=== PATIENT | female | born 1985 | race Caucasian/White ===

== ENCOUNTER → 2017-02-08 | Outpatient (CLI) | payer OTHER | LOC: KOH-I 02-05 09:30 | DX: S90.01XA Contusion of right ankle, initial encounter (principal) | CPT/HCPCS: 73723; A9577 ==

== ENCOUNTER → 2021-01-21 | Outpatient (CLI) | payer OTHER ==
[~2021-01-21] MED LIST: ALDACTONE100 MG PO; BREO ELLIPTA 11 EACH INH; BUSPIRONE HCL30 MG PO; COLACE 100MG C100 MG PO; FLONASE ALLER15.8 ML; GLUCOPHAGE500 MG PO; HYDROCHLOROTHIA25 MG PO; HYDROCODON-ACE1 EAC4 PO; IBU600 MG PO; IBUPROFEN600 MG PO; LAMOTRIGINE150 MG PO; LEXAPRO20 MG PO; NASACORT16.9 ML; NORCO 5-325 TA1 EACH PO; PROPRANOLOL HCL20 MG PO; PROTONIX40 MG PO; PROVERA 10 MG T10 MG PO; VENTOLIN HFA 66.7 GM INH; VISTARIL 25 MG25 MG PO; VITAMIN D21250 MCG PO; ZESTRIL5 MG PO
== END ==
LOC: US 07:53
DX: K76.0 Fatty (change of) liver, not elsewhere classified (principal)
CPT/HCPCS: 76700

== ENCOUNTER → 2021-03-28 | Day surgery (SDC) | payer OTHER ==
[2021-03-28 07:15] LABS: HEMOGLOBIN 13.9 gm/dl (12.3-15.3); RED BLOOD COUNT 4.58 M/UL (4.00-5.10); WHITE BLOOD COUNT 4.5 K/UL (4.5-11.0)
== END | disposition home or self-care (01) ==
LOC: OR 06:42
PROVIDERS: Obstetrics & Gynecology
DX: N92.1 Excessive and frequent menstruation with irregular cycle (principal); M50.30 Other cervical disc degeneration, unspecified cervical region; F41.1 Generalized anxiety disorder; F32.9 Major depressive disorder, single episode, unspecified; M51.37 Other intervertebral disc degeneration, lumbosacral region; K21.9 Gastro-esophageal reflux disease without esophagitis; I10 Essential (primary) hypertension; E55.9 Vitamin D deficiency, unspecified; J45.909 Unspecified asthma, uncomplicated; E78.5 Hyperlipidemia, unspecified; Z88.2 Allergy status to sulfonamides; Z79.899 Other long term (current) drug therapy; Z20.822 Contact with and (suspected) exposure to COVID-19
CPT/HCPCS: 36415; 81001; 84703; 85025; J1100; J2250; J2405; J2704; J2795; J3010; J7030; J7120; U0002

== ENCOUNTER → 2021-07-31 | Outpatient (CLI) | payer OTHER | LOC: MRI 09:50 | DX: R51.9 Headache, unspecified (principal) | CPT/HCPCS: 70553; A9577 ==

== ENCOUNTER → 2021-09-03 | Outpatient (CLI) | payer OTHER | LOC: KOH-I 08-28 15:00 | DX: J32.3 Chronic sphenoidal sinusitis (principal); J32.0 Chronic maxillary sinusitis | CPT/HCPCS: 70486 ==

== ENCOUNTER → 2021-10-29 | Outpatient (CLI) | payer OTHER ==
[~2021-10-29] MED LIST changes: +AMITRIPTYLINE H50 MG PO; +CYMBALTA60 MG PO; +EMGALITY120 MG/1 M SQ; +METFORMIN HCL500 MG PO; +MULTIVITAMIN; +UBRELVY PO
[2021-10-29 14:02] LABS: BUN/CREATININE RATIO 13 (0-10)
== END ==
LOC: OPSV2 12:30
PROVIDERS: Otolaryngology
DX: Z01.812 Encounter for preprocedural laboratory examination (principal)
CPT/HCPCS: 80048

== ENCOUNTER → 2021-11-07 | Day surgery (SDC) | payer OTHER | END | disposition home or self-care (01) | LOC: OR 07:13 | DX: J32.8 Other chronic sinusitis (principal); R09.82 Postnasal drip; J34.2 Deviated nasal septum; J30.9 Allergic rhinitis, unspecified; I10 Essential (primary) hypertension; Z79.84 Long term (current) use of oral hypoglycemic drugs; Z20.822 Contact with and (suspected) exposure to COVID-19; Z88.2 Allergy status to sulfonamides; E11.9 Type 2 diabetes mellitus without complications; K76.0 Fatty (change of) liver, not elsewhere classified; E66.01 Morbid (severe) obesity due to excess calories | CPT/HCPCS: 82962; 84703; C1726; J0171; J0690; J1100; J1170; J1885; J2001; J2250; J2405; J2704; J2710; J3010; J7030; J7120 ==

== ENCOUNTER → 2022-01-26 | Outpatient (CLI) | payer OTHER | LOC: US 08:30 | DX: K76.0 Fatty (change of) liver, not elsewhere classified (principal) | CPT/HCPCS: 76700 ==

== ENCOUNTER → 2022-08-05 | Outpatient (CLI) | payer OTHER | LOC: KOH-I 12:37 | DX: M54.2 Cervicalgia (principal); M54.6 Pain in thoracic spine; M54.50 Low back pain, unspecified | CPT/HCPCS: 72040; 72070; 72100 ==